=== PATIENT | female | born 1965 | race Caucasian/White ===

== ENCOUNTER 2019-09-15 12:46 | Emergency (ER) | payer MEDICAID, MEDICARE, OTHER ==
[~2019-09-15] VITALS: Ht 162 cm; Wt 55.0 kg
[~2019-09-15 12:46] MED LIST: ALBU8.5H2 IH; AMIT150T PO; AMIT25TA9 PO; CLON1TAB3 PO; FLUT16SP22 NSEACH; FLUT1DIS3 IH; GABA-488 PO; HYDR-3454 PO; LAMO100T PO; LAMO25TA PO; METO25TA6 PO; OMEP20CA12 PO; POTA-51 PO; VENL150T4 PO; VENL75TA74 PO
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
[2019-09-15] MEDS ORDERED: TETANUS,DIPTH,PERTUSS P/F (BOOSTRIX) 0.5 ML VIAL IM ONE (13:00)
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
[2019-09-15 13:43] VITALS: BP 132/65
== END 2019-09-15 13:44 | disposition home or self-care (01) ==
LOC: EDUNIT# 12:46 → ER FS 12:48
DX: S20.212A Contusion of left front wall of thorax, initial encounter (principal); S40.012A Contusion of left shoulder, initial encounter; S80.02XA Contusion of left knee, initial encounter; Y08.89XA Assault by other specified means, initial encounter; Z23 Encounter for immunization; Z88.2 Allergy status to sulfonamides; Z88.1 Allergy status to other antibiotic agents; Z88.5 Allergy status to narcotic agent; Z79.899 Other long term (current) drug therapy
CPT/HCPCS: 12002; 70450; 71101; 73030; 73560; 90471; 90715